=== PATIENT | female | born 1985 | race Two or more races ===

== ENCOUNTER 2025-07-09 16:03 | Emergency (ER) | payer MEDICAID ==
[~2025-07-09] VITALS: Ht 149.9 cm; Wt 68.0 kg
[2025-07-09 16:12] VITALS: BP 117/90; PULSE 78; RESP 18; TEMP 98.1; O2SAT 99
[2025-07-09 16:59] LABS: PLATELET COUNT (AUTO) 326 K/uL (150-450); RED BLOOD CELL COUNT(AUTO) 4.17 MIL/uL (4.00-5.20); RED CELL DISTRIBUTION WIDTH 13.9 % (11.5-14.5); WHITE BLOOD COUNT (AUTO) 8.9 K/uL (4.5-11.0)
[2025-07-09 17:04] LABS: APPEARANCE,URINE CLEAR (CLEAR); GLUCOSE, URINE (UA) NEGATIVE (NEGATIVE); LEUKOCYTE ESTERASE ,URINE SMALL (NEGATIVE); NITRATE,URINE NEGATIVE (NEGATIVE); OCCULT BLOOD,URINE SMALL (NEGATIVE); SPECIFIC GRAVITIY, URINE 1.011 (1.003-1.030)
[2025-07-09 17:06] LABS: CALCIUM, TOTAL 9.2 mg/dL (8.8-10.5); CREATININE 0.35 mg/dL (0.60-1.30); GLOMERULAR FILTR. RATE CALC > 60 mL/min (>60); GLUCOSE,RANDOM 91 mg/dL (70-110); SODIUM SERUM 137 mmol/L (136-145); UREA NITROGEN, BLOOD 9 mg/dL (7-18)
[2025-07-09 17:31] LABS: ASPARTATE AMINOTRANSFERASE 18 U/L (15-37); HCG,QUANTITATIVE 1824 mIU/mL (0-6); TOTAL PROTEIN, SERUM 7.0 g/dL (6.4-8.2)
== END 2025-07-09 20:08 | disposition home or self-care (01) ==
LOC: EMS 16:03
DX: O20.0 Threatened abortion (principal); Z3A.14 14 weeks gestation of pregnancy
CPT/HCPCS: 76801; 80053; 81001; 84702; 85025; 86901; 99284